=== PATIENT | male | born 1940 | race Caucasian/White ===

== ENCOUNTER 2016-06-13 16:56 | Inpatient (IN) | payer MEDICARE, OTHER ==
[~2016-06-13] VITALS: Ht 170.2 cm; Wt 80.3 kg
[~2016-06-13 16:56] MED LIST: AMLO1CAP8 PO; INSU100I13 SQ; INSU100I17 SQ; LEVO88TA4 PO; LOVA40TA2 PO; METF10002 PO
[2016-06-13] MEDS ORDERED: NITROGLYCERIN SUBLINGUAL 0.4 MG BOTTLE OF 25. SL PRN ×3 (17:15→19:15)
[2016-06-13 17:28] LABS: BASO # 0.1 x10^3/uL (0.0-0.2); BASO % 1 % (0-3); EOS % 4 % (0-3); HEMATOCRIT 47.7 % (39.0-53.0); HEMOGLOBIN 16.2 g/dL (13.0-17.5); LYMPH % 32 % (24-48); MEAN CORPUSCULAR HEMOGLOBIN 31 pg (25-35); MEAN CORPUSCULAR HGB CONC 34 g/dL (31-37); MEAN CORPUSCULAR VOLUME 92 fL (79-100); MONO % 7 % (0-9); NEUT % 56 % (31-73); PLATELET COUNT 306 x10^3/uL (140-400); RED BLOOD COUNT 5.17 x10^6/uL (4.30-5.70); RED CELL DISTRIBUTION WIDTH 12.9 % (11.5-14.5); WHITE BLOOD COUNT 9.5 x10^3/uL (4.0-11.0)
[2016-06-13 18:07] LABS: CALCIUM 9.3 mg/dL (8.5-10.1); CREATININE 1.3 mg/dL (0.7-1.3); GFR 53.8; POTASSIUM 3.9 mmol/L (3.5-5.1)
[2016-06-13 18:13] LABS: ALBUMIN 4.2 g/dL (3.4-5.0); DIRECT BILIRUBIN 0.1 mg/dL (0.0-0.2); MAGNESIUM 1.9 mg/dL (1.8-2.4); TOTAL BILIRUBIN 0.6 mg/dL (0.2-1.0); TOTAL PROTEIN 8.7 g/dL (6.4-8.2)
[2016-06-13 18:18] LABS: CKMB INDEX 1.3 % (0-4); CKMB MASS 1.6 ng/mL (0.0-3.6); INR 0.9 (0.8-1.1)
--- NOTE | 2016-06-13 18:41 | PHYS DOC ---
Past Medical History Past Medical History: Diabetes-Type II, High Cholesterol, Hypertension Past Surgical History: Other Additional Past Surgical Histo: hernia repair Alcohol Use: None Drug Use: None Adult General Chief Complaint Chief Complaint: CHEST PAIN HPI HPI Patient is a 76 year old female brought to the ED by ambulance with the complaint of pressure across the middle of his chest for about one hour. He never had chest pressure like this before. He did have an episode a few days ago of some pressure type pain in his left arm which went away by itself. He wasn't doing anything in particular. He did have some associated shortness of air today. When paramedics arrived they gave him a sublingual nitroglycerin and on arrival to the ED his pain is gone. He has also had a full dose of aspirin prehospital. PatienT has no cardiac history. PCP Dr. Tom Review of Systems Review of Systems Constitutional: Denies fever or chills [] Eyes: Denies change in visual acuity, redness, or eye pain [] HENT: Denies nasal congestion or sore throat [] Respiratory: Denies cough or shortness of breath [] Cardiovascular: As in history of present illness GI: Denies abdominal pain, nausea, vomiting, bloody stools or diarrhea [] : Denies dysuria or hematuria [] Musculoskeletal: Denies back pain or joint pain [] Integument: Denies rash or skin lesions [] Neurologic: Denies headache, focal weakness or sensory changes [] Current Medications Current Medications Current Medications Medications (Trade) Dose Ordered Sig/Darrius Start Time Stop Time Status Last Admin Dose Admin Nitroglycerin (Nitrostat) 0.4 mg PRN Q5MIN PRN 06/13/16 19:00 06/14/16 18:59 Allergies Allergies Allergies Coded Allergies Type Severity Reaction Last Updated Verified morphine Allergy Severe stops breathing 04/02/14 No Physical Exam Physical Exam Constitutional: Well developed, well nourished, no acute distress, non-toxic appearance. Alert, mentating normally. HENT: Normocephalic, atraumatic, bilateral external ears normal, nose normal. [ ] Eyes: conjunctiva normal, no discharge. [] Neck: Normal range of motion, no stridor. [] Cardiovascular:Heart rate regular rhythm, no murmur [] Lungs & Thorax: Bilateral breath sounds clear to auscultation [] Abdomen: Bowel sounds normal, soft, no tenderness, no masses, no pulsatile masses. [] Skin: Warm, dry, no erythema, no rash. [] Back: No tenderness, no CVA tenderness. [] Extremities: No tenderness, no cyanosis, no clubbing, ROM intact, no edema. [] Neurologic: Alert and oriented X 3, normal motor function, normal sensory function, no focal deficits noted. [] Current Patient Data Vital Signs Vital Signs Date Time Temp Pulse Resp B/P Pulse Ox O2 Delivery O2 Flow Rate FiO2 06/13/16 16:56 98.5 76 22 146/74 97 Room Air 98.5 Lab Values Laboratory Tests Test 06/13/16 17:10 White Blood Count 9.5x10^3/uL (4.0-11.0) Red Blood Count 5.17x10^6/uL (4.30-5.70) Hemoglobin 16.2g/dL (13.0-17.5) Hematocrit 47.7% (39.0-53.0) Mean Corpuscular Volume 92fL (79-100) Mean Corpuscular Hemoglobin 31pg (25-35) Mean Corpuscular Hemoglobin Concent 34g/dL (31-37) Red Cell Distribution Width 12.9% (11.5-14.5) Platelet Count 306x10^3/uL (140-400) Neutrophils (%) (Auto) 56% (31-73) Lymphocytes (%) (Auto) 32% (24-48) Monocytes (%) (Auto) 7% (0-9) Eosinophils (%) (Auto) 4% (0-3) H Basophils (%) (Auto) 1% (0-3) Neutrophils # (Auto) 5.3x10^3uL (1.8-7.7) Lymphocytes # (Auto) 3.0x10^3/uL (1.0-4.8) Monocytes # (Auto) 0.7x10^3/uL (0.0-1.1) Eosinophils # (Auto) 0.4x10^3/uL (0.0-0.7) Basophils # (Auto) 0.1x10^3/uL (0.0-0.2) Prothrombin Time 12.0SEC (11.7-14.0) Prothrombin Time INR 0.9 (0.8-1.1) Sodium Level 138mmol/L (136-145) Potassium Level 3.9mmol/L (3.5-5.1) Chloride Level 100mmol/L (98-107) Carbon Dioxide Level 24mmol/L (21-32) Anion Gap 14 (6-14) Blood Urea Nitrogen 9mg/dL (8-26) Creatinine 1.3mg/dL (0.7-1.3) Estimated GFR (Cockcroft-Gault) 53.8 Glucose Level 140mg/dL (70-99) H Calcium Level 9.3mg/dL (8.5-10.1) Magnesium Level 1.9mg/dL (1.8-2.4) Total Bilirubin 0.6mg/dL (0.2-1.0) Direct Bilirubin 0.1mg/dL (0.0-0.2) Aspartate Amino Transferase (AST) 29U/L (15-37) Alanine Aminotransferase (ALT) 31U/L (16-63) Alkaline Phosphatase 47U/L (46-116) Creatine Kinase 125U/L (39-308) Creatine Kinase MB (Mass) 1.6ng/mL (0.0-3.6) Creatine Kinase MB Relative Index 1.3% (0-4) Troponin I Quantitative < 0.017ng/mL (0.000-0.055) WH-Xdt-C-Type Natriuretic Peptide 93pg/mL (0-449) Total Protein 8.7g/dL (6.4-8.2) H Albumin 4.2g/dL (3.4-5.0) Laboratory Tests 06/13/16 17:10 Laboratory Tests 06/13/16 17:10 EKG EKG 12-lead EKG read by me. Sinus rhythm. Heart rate 100. There are 4 PVCs. There are no acute ST or T wave changes indicative of ischemia or infarction. No STEMI. 1659 [] Radiology/Procedures Radiology/Procedures One view portable chest x-ray read by me. Heart size is normal. Lung bucio are clear. No acute cardiopulmonary abnormality. [] Course & Med Decision Making Course & Med Decision Making Pertinent Labs and Imaging studies reviewed. (See chart for details) 76-year-old male presents by EMS with a one-hour history of a pressure-type discomfort in his chest that is new for him. No EKG changes. It was relieved by one sublingual nitroglycerin per EMS. He has had a dose of aspirin. I'm concerned that this may represent angina/cardiac chest pain. I discussed with the patient admission to the hospital for serial troponins and cardiology consultation for further evaluation, he is agreeable to that plan. I spoke with Dr. Tom about admitting the patient. I wrote bridge orders. [] Dragon Disclaimer Dragon Disclaimer This electronic medical record was generated, in whole or in part, using a voice recognition dictation system. Departure Departure Impression: Primary Impression: Chest pain Disposition: ADMITTED INPATIENT Admitting Physician: oJaquin Tom Condition: STABLE Referrals: JOAQUIN TOM MD (PCP) SAVANNAH DOMINGUEZ MD Jun 13, 2016 18:41
[2016-06-13] MEDS ORDERED: ACETAMINOPHEN 325 MG TABLET. PO PRN (19:15)
[2016-06-13] MEDS ORDERED: MAGNESIUM HYDROXIDE 2,400 MG/30 ML ORAL.SUSP. PO PRN (19:15)
[2016-06-13 20:22] VITALS: BP 143/84
[2016-06-13] MEDS: ATORVASTATIN CALCIUM 20 MG TABLET PO SCH (20:38)
[2016-06-13] MEDS: INSULIN DETEMIR 300 UNITS/3 ML INSULN.PEN. SQ SCH (20:42)
[2016-06-13 22:59] VITALS: BP 134/83
--- NOTE | 2016-06-14 05:35 | ACF ---
Admission Forms Criteria CHEST PAIN Clinical Indications for Admission to Inpatient Care (Place 'X' for any and all applicable criteria): Admission is indicated for chest pain and ANY ONE of the following(1)(2)(3)(4)(5 ): [ ]I. Angina with acute coronary syndrome (Also use Myocardial Infarction or Angina guideline) [ ]II. Hemodynamic instability [ ]III. Angina needing acute intervention as indicated by ALL of the following( 11)(12): [ ]a) Unstable angina is present as indicated by angina that is ANY ONE of the following: [ ]i) New onset [ ]ii) Nocturnal [ ]iii) Prolonged at rest [ ]iv) Progressive [ ]b) Angina warrants acute intervention as indicated by ANY ONE of the following: [ ]i) Recurrent angina (e.g, not responding as previously to treatment) [ ]ii) Angina at rest or with low-level activities despite initial medical therapy [ ]iii) New or presumably new ST-segment depression on ECG [ ]iv) Signs or symptoms of heart failure (eg, dyspnea, pulmonary edema) [ ]v) New or worsening mitral regurgitation [ ]vi) Hemodynamic instability [ ]vii) Dangerous arrhythmia (eg, sustained ventricular tachycardia) [ ]viii) History of percutaneous coronary intervention within 6 months [ ]ix) History of coronary artery bypass graft surgery [ ]x) AGUILAR risk score of 2 or greater[A] [ ]xi) History of Diabetes(14) [ ]xii) High-risk cardiac ischemia findings on noninvasive testing (e.g, echocardiogram, treadmill testing, nuclear scan) [ ]xiii) Chronic renal insufficiency (ie, estimated GFR less than 60 mL/min/1.732m) [ ]xiv) Left ventricular ejection fraction less than 40% [ ]IV. Evidence of MD (eg, cardiac biomarkers positive, ST-segment elevation on ECG) also use Myocardial Infarction Criteria Form. [ ]V. Pulmonary edema [ ]. Respiratory distress [ ]VII. Chest pain indicative of serious diagnosis other than coronary artery disease (eg, aortic dissection) [ ]VIII. Contraindications and/or Inappropriate clinical situations for Observational Care in patients with Chest Pain, when ANY ONE of the following is required: [ ]a) Patient with risk factor for pulmonary embolism, acute coronary syndrome and myocardial infarction (18) [ ]b) Patient with Pulmonary embolism require an average LOS of 4.3 days, therefore emergency department observation management is inappropriate 18,23 [ ]c) Painful condition/s in the elderly, have the highest rate of recidivism after emergency department observation management (10.8%) 20,21,22 [ ]d) Elevated cardiac biomarker requires intensive and exhaustive care (19) [X]IX. General contraindications and/or Inappropriate clinical situations for Observational Care in patients with Chest Pain, when ANY ONE of the following is required: [X]a) Prediction of prolongation of LOS based on ANY ONE of the following may be considered as a contraindication for observational care 2, 3, 4, 5, 6, 7, 8, 9, 10, 11 [X]i) Age > 65 yrs. [ ]ii) Patient arriving by ambulance [ ]iii) Patient with high acuity [X]iv) Patient requiring vital sign monitoring [ ]v) Patient on IV medication [ ]b) Systolic blood pressures 180mmHg 3,12 [ ]c) Patient with altered mental status including delirium and other alteration of consciousness, (3) [ ]d) Patient whose discharge disposition will be to a [facility]p home or rehabilitation home should not be managed in Emergency Department Observation Unit. CMS rule requires 3 days hospital stay before such placement. 3,13 [ ]e) Patient with failure to thrive due to broad array of etiologies 3,16,17 [ ]f) Inability to ambulate 3,14 Extended stay beyond goal length of stay may be needed for (1)(28): [ ]a) Specific condition diagnosed after evaluation (eg, pulmonary embolism, aortic dissection) [ ]b) Unstable angina [ ]c) Continued suspicion of acute coronary syndrome with inability to complete needed cardiac evaluation (eg, patient clinically unable to undergo stress testing) [ ]d) Myocardial infarction (Contents from ANGINA and CHEST PAIN clinical indications for admission to inpatient care have been integrated in this form) The original [facility] content created by [employer] has been revised. The portions of the content which have been revised are identified through the use of italic text or in bold, and [facility] has neither reviewed nor approved the modified material. All other unmodified content is copyright [facility]. Please see references footnoted in the original [facility] edition 2016 Admission Criteria Met?: Yes YUDY FRASER Jun 14, 2016 05:35
[2016-06-14] MEDS: LEVOTHYROXINE 88 MCG TABLET PO SCH (06:01)
[2016-06-14 06:47] LABS: CHOLESTEROL/HDL RATIO 4.3
[2016-06-14 07:10] VITALS: BP 129/76
[2016-06-14] MEDS: METFORMIN 1,000 MG TABLET PO SCH ×2 (08:26→17:37)
[2016-06-14] MEDS: AMLODIPINE BESYLATE 5 MG TABLET PO SCH (08:26)
[2016-06-14] MEDS: LISINOPRIL 20 MG TABLET PO SCH (08:27)
[2016-06-14] MEDS: INSULIN ASPART 300 UNITS/3 ML INSULN.PEN SQ SCH ×2 (08:31→12:17)
--- NOTE | 2016-06-14 09:57 | PDOC ---
Provider Note Provider Note history and physical dictated # [id number] LUZMA CARDOZO MD Jun 14, 2016 09:57
[2016-06-14 10:35] VITALS: BP 127/76
--- NOTE | 2016-06-14 10:58 | RAD ---
EXAM: Chest one view. HISTORY: Chest pain. COMPARISON: 04/02/2014. FINDINGS: A frontal view of the chest is obtained. Linear opacities in the left base are consistent with atelectasis or scarring. A triangular opacity in the right cardiophrenic angle is stable and likely represents a fat pad. Calcified mediastinal lymph nodes are likely secondary to old granulomatous disease. There is no pneumothorax or pleural effusion. The heart is not enlarged. There are atherosclerotic calcifications of the aorta. A paraspinal opacity at the hiatus suggests a hiatal hernia or aortic tortuosity. It is stable. IMPRESSION: 1. Left basilar atelectasis or scarring. 2. Moderate hiatal hernia versus aortic tortuosity.
[2016-06-14] MEDS: ASPIRIN 325 MG TABLET PO SCH (12:15)
--- NOTE | 2016-06-14 12:49 | EKG ---
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
[2016-06-14 14:30] VITALS: BP 125/77
--- NOTE | 2016-06-14 16:30 | PDOC2 ---
CARDIAC CONSULT DATE OF CONSULT Date of Consult DATE: 06/14/16 TIME: 16:21 REASON FOR CONSULT Reason for Consult: Chest pain HISTORY OF PRESENT ILLNESS HISTORY OF PRESENT ILLNESS 76 yo diabetic reports left arm pain last week that was unprovoked and subsided spontaneously after 15 to 20 minutes. Then had substernal pressure on day of admit that again was unprovoked and lasted 15-20 minutes and subsided. 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 This lasted about an hour before being relieved in the ED with some nitro. He has been symptom free since admit. Troponin negative x 2. PAST MEDICAL HISTORY Cardiovascular: HTN, Hyperlipidemia Endocrine: Diabetes PAST SURGICAL HISTORY Past Surgical History Hernia x 2 FAMILY HISTORY Family History Ftaher with CHF late in life SOCIAL HISTORY Smoke: No CURRENT MEDICATIONS CURRENT MEDICATIONS Current Medications Medications (Trade) Dose Ordered Sig/Darrius Route PRN Reason Start Time Stop Time Status Last Admin Dose Admin Amlodipine Besylate (Norvasc) 5 mg DAILY PO 06/14/16 09:00 06/14/16 08:26 Lisinopril (Prinivil) 20 mg DAILY PO 06/14/16 09:00 06/14/16 08:27 Insulin Aspart (Novolog) 6 units DAILYWBKFT SQ 06/14/16 08:00 06/14/16 08:31 Insulin Aspart (Novolog) 4 units DAILYWLUN SQ 06/14/16 12:00 06/14/16 12:17 Levothyroxine Sodium (Synthroid) 88 mcg DAILY07 PO 06/14/16 07:00 06/14/16 06:01 Insulin Detemir (Levemir) 22 units QHS SQ 06/13/16 21:00 06/13/16 20:42 Metformin HCl (Glucophage) 1,000 mg BIDWMEALS PO 06/14/16 08:00 06/14/16 08:26 Atorvastatin Calcium (Lipitor) 20 mg QHS PO 06/13/16 21:00 06/13/16 20:38 Aspirin (Enrico Aspirin) 325 mg DAILYWBKFT PO 06/14/16 11:00 06/14/16 12:15 ALLERGIES ALLERGIES: Coded Allergies: morphine (Verified Allergy, Severe, stops breathing, 06/14/16) PHYSICAL EXAM General: Alert, Oriented X3, Cooperative Lungs: Clear to auscultation Heart: No murmurs Abdomen: Normal bowel sounds Extremities: No edema Neuro: Other (non-focal) VITALS VITALS Vital Signs Date Time Temp Pulse Resp B/P Pulse Ox O2 Delivery O2 Flow Rate FiO2 06/14/16 14:30 97.9 76 18 125/77 97 Room Air 97.9 06/13/16 22:59 2.0 LABS Lab: Laboratory Tests Test 06/13/16 17:10 06/13/16 20:01 06/14/16 01:00 06/14/16 05:55 White Blood Count 9.5x10^3/uL (4.0-11.0) Red Blood Count 5.17x10^6/uL (4.30-5.70) Hemoglobin 16.2g/dL (13.0-17.5) Hematocrit 47.7% (39.0-53.0) Mean Corpuscular Volume 92fL (79-100) Mean Corpuscular Hemoglobin 31pg (25-35) Mean Corpuscular Hemoglobin Concent 34g/dL (31-37) Red Cell Distribution Width 12.9% (11.5-14.5) Platelet Count 306x10^3/uL (140-400) Neutrophils (%) (Auto) 56% (31-73) Lymphocytes (%) (Auto) 32% (24-48) Monocytes (%) (Auto) 7% (0-9) Eosinophils (%) (Auto) 4% (0-3) Basophils (%) (Auto) 1% (0-3) Neutrophils # (Auto) 5.3x10^3uL (1.8-7.7) Lymphocytes # (Auto) 3.0x10^3/uL (1.0-4.8) Monocytes # (Auto) 0.7x10^3/uL (0.0-1.1) Eosinophils # (Auto) 0.4x10^3/uL (0.0-0.7) Basophils # (Auto) 0.1x10^3/uL (0.0-0.2) Prothrombin Time 12.0SEC (11.7-14.0) Prothromb Time International Ratio 0.9 (0.8-1.1) Sodium Level 138mmol/L (136-145) Potassium Level 3.9mmol/L (3.5-5.1) Chloride Level 100mmol/L (98-107) Carbon Dioxide Level 24mmol/L (21-32) Anion Gap 14 (6-14) Blood Urea Nitrogen 9mg/dL (8-26) Creatinine 1.3mg/dL (0.7-1.3) Estimated GFR (Cockcroft-Gault) 53.8 Glucose Level 140mg/dL (70-99) Calcium Level 9.3mg/dL (8.5-10.1) Magnesium Level 1.9mg/dL (1.8-2.4) Total Bilirubin 0.6mg/dL (0.2-1.0) Direct Bilirubin 0.1mg/dL (0.0-0.2) Aspartate Amino Transf (AST/SGOT) 29U/L (15-37) Alanine Aminotransferase (ALT/SGPT) 31U/L (16-63) Alkaline Phosphatase 47U/L (46-116) Creatine Kinase 125U/L (39-308) Creatine Kinase MB (Mass) 1.6ng/mL (0.0-3.6) Creatine Kinase MB Relative Index 1.3% (0-4) Troponin I Quantitative < 0.017ng/mL (0.000-0.055) < 0.017ng/mL (0.000-0.055) < 0.017ng/mL (0.000-0.055) MG-Ndo-P-Type Natriuretic Peptide 93pg/mL (0-449) Total Protein 8.7g/dL (6.4-8.2) Albumin 4.2g/dL (3.4-5.0) Glucose (Fingerstick) 216mg/dL (70-99) Triglycerides Level 231mg/dL (0-150) Cholesterol Level 133mg/dL (0-200) LDL Cholesterol, Calculated 56mg/dL (0-100) VLDL Cholesterol, Calculated 46mg/dL (0-40) HDL Cholesterol 31mg/dL (40-60) Cholesterol/HDL Ratio 4.3 Test 06/14/16 07:15 06/14/16 11:25 Glucose (Fingerstick) 153mg/dL (70-99) 182mg/dL (70-99) EKG EKG No injury pattern or ischemia ASSESSMENT/PLAN ASSESSMENT/PLAN 1) Non-cardiac chest pain. Most likely GI, particularly given that he was bending at the waist when worst symptoms were provoked, c/w possible hiatal hernia or esophageal spasm. 2) Diabetes 3) HTN This event is without any high risk features, and therefore there is no need for ACS treatment with anticoagulation or DAPT. However, it is reasonable to perform risk stratification with stress testing given his risk profile with DM, HTN,and age. Plan for tomorrow. More care planning and recommendations to follow stress testing. Total time with more than half counseling and coordinating care on the unit is 35 minutes. Problems: KASEY REED DO Jun 14, 2016 16:30
[2016-06-14] MEDS ORDERED: INSULIN ASPART 300 UNITS/3 ML INSULN.PEN SQ SCH (17:00)
--- NOTE | 2016-06-14 17:58 | HP ---
ADMIT DATE: 06/13/2016 LOCATION: He is in room 504. HISTORY OF PRESENT ILLNESS: The patient is a 76-year-old white male with a history of diabetes mellitus type 2, hypertension, hyperlipidemia and hypothyroidism who was admitted to [facility] at the Emergency Room with chest pressure. The patient states that he was sitting down at the computer reviewing his emails when he developed the onset of chest pressure associated with dizziness and generalized weakness, but without any shortness of breath or diaphoresis. He took an aspirin 81 mg and paramedics arrived and he noted his chest pressure was improving. He was given a sublingual nitroglycerin and chest pressure was essentially resolved by the time he got to the Emergency Room. His electrocardiogram was told to not show any acute change. He also had a chest x-ray done. He has not had any recurrent chest pressure since admission. He did note 2 days prior to his episode yesterday, he had a 4-minute episode of left arm discomfort, but attributed that to lifting some heavy things prior to that. Denies any exertional chest discomfort. He does not have any family history of acute myocardial infarctions, nor does he smoke cigarettes. He said he was taken off of aspirin in 2013 because he had a lower GI bleed. ALLERGIES AND INTOLERANCES: MORPHINE. MEDICATIONS: Prior to admission include Levemir insulin 22 units at bedtime. He is on NovoLog insulin 6 units before breakfast and 4 units before lunch and supper. He takes amlodipine/benazepril 5/10 mg once a day and actual benazepril 10 mg every day. Also takes levothyroxine 88 mcg every day, metformin 1000 mg b.i.d., and lovastatin 40 mg every day. PAST MEDICAL HISTORY: Significant for diabetes mellitus type 2, hypertension, hyperlipidemia and hypothyroidism. He has a history of benign prostatic hypertrophy. He has right eye prosthesis, right inguinal hernia repair in 2007, umbilical hernia repair, and tonsillectomy. He had a colonoscopy with polypectomy with tubular adenomas removed in 04/2012. History of diverticulosis. Apparently, he had a lower GI bleed in 2012. SOCIAL HISTORY: He does not drink alcohol nor does she smoke cigarettes. He is retired and . He lives alone. FAMILY HISTORY: Mother with diabetes mellitus and cerebrovascular accident. His sister has diabetes mellitus. REVIEW OF SYSTEMS: GENERAL: There has been no fever, chills or sweats in the last few days. CARDIOVASCULAR: He had chest pressure. PULMONARY: No cough or shortness of breath. GASTROINTESTINAL: No constipation. SKIN: No rashes. NEUROLOGIC: No focal weakness. ENDOCRINE: He has diabetes mellitus. SKIN: No rashes. The rest of systems reviewed are negative except as stated in the history of present illness. PHYSICAL EXAMINATION: VITAL SIGNS: Temperature is 97.7 degrees, apical pulse is regular at 68, respiratory rate 18, blood pressure 129/76, and oxygen saturation 97% on room air. HEENT: Eyes: He has got a prosthetic right eye. Mouth is symmetrical. NECK: No cervical lymphadenopathy or thyroid enlargement. HEART: Reveals an S1, S2. There is no S3 or murmur. LUNGS: Clear. ABDOMEN: Soft with no hepatosplenomegaly, masses, or tenderness. EXTREMITIES: Lower extremities without edema. Examination of his feet, dorsalis pedis pulses are present bilaterally. SKIN: No rashes. NEUROLOGIC: Revealed no focal weakness of the extremities or facial asymmetry. LABORATORY DATA: White count 9.5, hemoglobin 16.2, platelet count 306,000, 56 polys and 32 lymphocytes. INR was 0.9. Serum sodium 138, potassium 3.9, chloride 100, total CO2 is 24, BUN 9, creatinine 1.3, estimated GFR 53.8. Liver function tests were normal. Albumin 4.2. Troponin was negative x 3. Fingerstick blood sugar 153 today, cholesterol 133, LDL cholesterol 56, HDL cholesterol 31, and triglycerides 231. The chest x-ray report is pending and I do not have access to read the electrocardiogram due to the computer issue we have at this facility. ASSESSMENT AND PLAN: 1. Chest pressure. He did not have an acute myocardial infarction, as his cardiac enzymes are negative x 3; however, he does have several risk factors for coronary artery disease including diabetes mellitus, hypertension and hyperlipidemia. We will order an echocardiogram and a stress test and consult with cardiology. 2. Diabetes mellitus type 2 with diabetic nephropathy. 3. Chronic kidney disease stage 3. 4. Hypertension. 5. Hyperlipidemia. 6. Hypothyroidism. 7. Diverticulosis. PLAN: Plan at this time is to resume his aspirin 325 mg every day. I will order an echocardiogram and have the safety analyst order the stress test for tomorrow. We will continue with his current insulin dose, continue with his amlodipine and substitute his benazepril with lisinopril and we will also substitute his lovastatin with atorvastatin. Continue with the aspirin for now. Continue with the metformin also and insulin for his diabetes mellitus and the levothyroxine for his hypothyroidism. Hemoglobin A1c was ordered. Nitroglycerin sublingual p.r.n. has been ordered. We will put him on ADA cardiac diet and consult Dr. Haynes for cardiology. LUZMA CARDOZO MD DR: REGINA/nts JOB#: [id number] / [id number]
[2016-06-14 19:42] VITALS: BP 90/58
[2016-06-14 19:45] VITALS: BP 134/77
[2016-06-14] MEDS: ATORVASTATIN CALCIUM 20 MG TABLET PO SCH (20:40)
[2016-06-14] MEDS: INSULIN DETEMIR 300 UNITS/3 ML INSULN.PEN. SQ SCH (20:44)
[2016-06-14 23:01] VITALS: BP 138/80
[2016-06-15 04:44] LABS: BASO # 0.1 x10^3/uL (0.0-0.2); BASO % 2 % (0-3); EOS % 6 % (0-3); HEMATOCRIT 42.3 % (39.0-53.0); HEMOGLOBIN 14.3 g/dL (13.0-17.5); LYMPH # 2.6 x10^3/uL (1.0-4.8); LYMPH % 30 % (24-48); MEAN CORPUSCULAR HEMOGLOBIN 31 pg (25-35); MEAN CORPUSCULAR HGB CONC 34 g/dL (31-37); MEAN CORPUSCULAR VOLUME 92 fL (79-100); MONO % 9 % (0-9); NEUT % 53 % (31-73); PLATELET COUNT 240 x10^3/uL (140-400); RED BLOOD COUNT 4.61 x10^6/uL (4.30-5.70); RED CELL DISTRIBUTION WIDTH 12.8 % (11.5-14.5); WHITE BLOOD COUNT 8.4 x10^3/uL (4.0-11.0)
[2016-06-15 05:01] LABS: CALCIUM 8.7 mg/dL (8.5-10.1); CREATININE 1.2 mg/dL (0.7-1.3); POTASSIUM 4.5 mmol/L (3.5-5.1)
[2016-06-15] MEDS: LEVOTHYROXINE 88 MCG TABLET PO SCH (06:28)
[2016-06-15 07:00] VITALS: BP 131/80
[2016-06-15] MEDS: INSULIN ASPART 300 UNITS/3 ML INSULN.PEN SQ SCH ×2 (08:00→12:23)
--- NOTE | 2016-06-15 08:37 | PDOC ---
PROGRESS NOTES Subjective Subjective denies further chest pain. will have stress test today Objective Objective Vital Signs Date Time Temp Pulse Resp B/P Pulse Ox O2 Delivery O2 Flow Rate FiO2 06/15/16 07:00 98.1 72 14 131/80 97 Room Air 98.1 06/13/16 22:59 2.0 Intake and Output 06/15/16 07:00 Intake Total 980 ml Balance 980 ml Intake Oral 980 ml # Voids 6 Physical Exam Abdomen: Soft Heart: Regular rate, Normal S1, Normal S2 Extremities: No edema General: Alert HEENT: Atraumatic Lungs: Clear to auscultation Neuro: Normal speech Psych/Mental Status: Mental status NL Skin: No rashes Assessment Assessment Problems Medical Problems:1. Chest pressure. troponin neg times 3 with cardiology. 2. Diabetes mellitus type 2 with diabetic nephropathy. 3. Chronic kidney disease stage 3. 4. Hypertension. 5. Hyperlipidemia. 6. Hypothyroidism. 7. Diverticulosis. (1) Chest pain Status: Acute Plan Plan of Care MPI stress test today Comment Review of Relevant I have reviewed the following items rachelle (where applicable) has been applied. Labs Laboratory Tests Test 06/13/16 17:10 06/13/16 20:01 06/14/16 01:00 06/14/16 05:55 White Blood Count 9.5x10^3/uL (4.0-11.0) Red Blood Count 5.17x10^6/uL (4.30-5.70) Hemoglobin 16.2g/dL (13.0-17.5) Hematocrit 47.7% (39.0-53.0) Mean Corpuscular Volume 92fL (79-100) Mean Corpuscular Hemoglobin 31pg (25-35) Mean Corpuscular Hemoglobin Concent 34g/dL (31-37) Red Cell Distribution Width 12.9% (11.5-14.5) Platelet Count 306x10^3/uL (140-400) Neutrophils (%) (Auto) 56% (31-73) Lymphocytes (%) (Auto) 32% (24-48) Monocytes (%) (Auto) 7% (0-9) Eosinophils (%) (Auto) 4% (0-3) Basophils (%) (Auto) 1% (0-3) Neutrophils # (Auto) 5.3x10^3uL (1.8-7.7) Lymphocytes # (Auto) 3.0x10^3/uL (1.0-4.8) Monocytes # (Auto) 0.7x10^3/uL (0.0-1.1) Eosinophils # (Auto) 0.4x10^3/uL (0.0-0.7) Basophils # (Auto) 0.1x10^3/uL (0.0-0.2) Prothrombin Time 12.0SEC (11.7-14.0) Prothromb Time International Ratio 0.9 (0.8-1.1) Sodium Level 138mmol/L (136-145) Potassium Level 3.9mmol/L (3.5-5.1) Chloride Level 100mmol/L (98-107) Carbon Dioxide Level 24mmol/L (21-32) Anion Gap 14 (6-14) Blood Urea Nitrogen 9mg/dL (8-26) Creatinine 1.3mg/dL (0.7-1.3) Estimated GFR (Cockcroft-Gault) 53.8 Glucose Level 140mg/dL (70-99) Calcium Level 9.3mg/dL (8.5-10.1) Magnesium Level 1.9mg/dL (1.8-2.4) Total Bilirubin 0.6mg/dL (0.2-1.0) Direct Bilirubin 0.1mg/dL (0.0-0.2) Aspartate Amino Transf (AST/SGOT) 29U/L (15-37) Alanine Aminotransferase (ALT/SGPT) 31U/L (16-63) Alkaline Phosphatase 47U/L (46-116) Creatine Kinase 125U/L (39-308) Creatine Kinase MB (Mass) 1.6ng/mL (0.0-3.6) Creatine Kinase MB Relative Index 1.3% (0-4) Troponin I Quantitative < 0.017ng/mL (0.000-0.055) < 0.017ng/mL (0.000-0.055) < 0.017ng/mL (0.000-0.055) BT-Wuj-K-Type Natriuretic Peptide 93pg/mL (0-449) Total Protein 8.7g/dL (6.4-8.2) Albumin 4.2g/dL (3.4-5.0) Glucose (Fingerstick) 216mg/dL (70-99) Triglycerides Level 231mg/dL (0-150) Cholesterol Level 133mg/dL (0-200) LDL Cholesterol, Calculated 56mg/dL (0-100) VLDL Cholesterol, Calculated 46mg/dL (0-40) HDL Cholesterol 31mg/dL (40-60) Cholesterol/HDL Ratio 4.3 Test 06/14/16 07:15 06/14/16 11:25 06/14/16 16:22 06/14/16 20:33 Glucose (Fingerstick) 153mg/dL (70-99) 182mg/dL (70-99) 138mg/dL (70-99) 172mg/dL (70-99) Test 06/15/16 04:00 06/15/16 08:17 White Blood Count 8.4x10^3/uL (4.0-11.0) Red Blood Count 4.61x10^6/uL (4.30-5.70) Hemoglobin 14.3g/dL (13.0-17.5) Hematocrit 42.3% (39.0-53.0) Mean Corpuscular Volume 92fL (79-100) Mean Corpuscular Hemoglobin 31pg (25-35) Mean Corpuscular Hemoglobin Concent 34g/dL (31-37) Red Cell Distribution Width 12.8% (11.5-14.5) Platelet Count 240x10^3/uL (140-400) Neutrophils (%) (Auto) 53% (31-73) Lymphocytes (%) (Auto) 30% (24-48) Monocytes (%) (Auto) 9% (0-9) Eosinophils (%) (Auto) 6% (0-3) Basophils (%) (Auto) 2% (0-3) Neutrophils # (Auto) 4.4x10^3uL (1.8-7.7) Lymphocytes # (Auto) 2.6x10^3/uL (1.0-4.8) Monocytes # (Auto) 0.8x10^3/uL (0.0-1.1) Eosinophils # (Auto) 0.5x10^3/uL (0.0-0.7) Basophils # (Auto) 0.1x10^3/uL (0.0-0.2) Sodium Level 142mmol/L (136-145) Potassium Level 4.5mmol/L (3.5-5.1) Chloride Level 107mmol/L (98-107) Carbon Dioxide Level 27mmol/L (21-32) Anion Gap 8 (6-14) Blood Urea Nitrogen 14mg/dL (8-26) Creatinine 1.2mg/dL (0.7-1.3) Estimated GFR (Cockcroft-Gault) 59.0 Glucose Level 120mg/dL (70-99) Calcium Level 8.7mg/dL (8.5-10.1) Glucose (Fingerstick) 152mg/dL (70-99) Laboratory Tests Test 06/14/16 11:25 06/14/16 16:22 06/14/16 20:33 06/15/16 04:00 Glucose (Fingerstick) 182mg/dL (70-99) 138mg/dL (70-99) 172mg/dL (70-99) White Blood Count 8.4x10^3/uL (4.0-11.0) Red Blood Count 4.61x10^6/uL (4.30-5.70) Hemoglobin 14.3g/dL (13.0-17.5) Hematocrit 42.3% (39.0-53.0) Mean Corpuscular Volume 92fL (79-100) Mean Corpuscular Hemoglobin 31pg (25-35) Mean Corpuscular Hemoglobin Concent 34g/dL (31-37) Red Cell Distribution Width 12.8% (11.5-14.5) Platelet Count 240x10^3/uL (140-400) Neutrophils (%) (Auto) 53% (31-73) Lymphocytes (%) (Auto) 30% (24-48) Monocytes (%) (Auto) 9% (0-9) Eosinophils (%) (Auto) 6% (0-3) Basophils (%) (Auto) 2% (0-3) Neutrophils # (Auto) 4.4x10^3uL (1.8-7.7) Lymphocytes # (Auto) 2.6x10^3/uL (1.0-4.8) Monocytes # (Auto) 0.8x10^3/uL (0.0-1.1) Eosinophils # (Auto) 0.5x10^3/uL (0.0-0.7) Basophils # (Auto) 0.1x10^3/uL (0.0-0.2) Sodium Level 142mmol/L (136-145) Potassium Level 4.5mmol/L (3.5-5.1) Chloride Level 107mmol/L (98-107) Carbon Dioxide Level 27mmol/L (21-32) Anion Gap 8 (6-14) Blood Urea Nitrogen 14mg/dL (8-26) Creatinine 1.2mg/dL (0.7-1.3) Estimated GFR (Cockcroft-Gault) 59.0 Glucose Level 120mg/dL (70-99) Calcium Level 8.7mg/dL (8.5-10.1) Test 06/15/16 08:17 Glucose (Fingerstick) 152mg/dL (70-99) Medications Current Medications Nitroglycerin (Nitrostat) 0.4 mg PRN Q5MIN PRN SL CP RATING > 1/10; Start 06/13 at 17:15; Stop 06/13/16 at 18:58; Status DC Nitroglycerin (Nitrostat) 0.4 mg PRN Q5MIN PRN SL CHEST PAIN; Start 06/13/16 at 19:00; Stop 06/13/16 at 19:22; Status DC Amlodipine Besylate (Norvasc) 5 mg DAILY PO Last administered on 06/14/16 08: 26; Start 06/14/16 at 09:00 Lisinopril (Prinivil) 20 mg DAILY PO Last administered on 06/14/16 08:27; Start 06/14/16 at 09:00 Insulin Aspart (Novolog) 6 units DAILYWBKFT SQ Last administered on 06/14/16 08:31; Start 06/14/16 at 08:00 Insulin Aspart (Novolog) 4 units DAILYWLUN SQ Last administered on 06/14/16 12 :17; Start 06/14/16 at 12:00 Insulin Aspart (Novolog) 4 units DAILYWSUP SQ Last administered on 06/14/16 17 :40; Start 06/14/16 at 17:00 Levothyroxine Sodium (Synthroid) 88 mcg DAILY07 PO Last administered on 06:28; Start 06/14/16 at 07:00 Insulin Detemir (Levemir) 22 units QHS SQ Last administered on 06/14/16 20:44 ; Start 06/13/16 at 21:00 Metformin HCl (Glucophage) 1,000 mg BIDWMEALS PO Last administered on 17:37; Start 06/14/16 at 08:00 Atorvastatin Calcium (Lipitor) 20 mg QHS PO Last administered on 06/14/16 20: 40; Start 06/13/16 at 21:00 Acetaminophen (Tylenol) 650 mg PRN Q4HRS PRN PO MILD PAIN / TEMP; Start at 19:15 Magnesium Hydroxide (Milk Of Magnesia) 2,400 mg DAILY PRN PO CONSTIPATION; Start 06/13/16 at 19:15 Nitroglycerin (Nitrostat) 0.4 mg PRN Q5MIN PRN SL CHEST PAIN; Start 06/13/16 at 19:15 Aspirin (Enrico Aspirin) 325 mg DAILYWBKFT PO Last administered on 06/14/16 12: 15; Start 06/14/16 at 11:00 Active Scripts Active Amlodipine-Benazepril 5-10 Mg (Amlodipine Besylate/Benazepril) 1 Each Capsule 1 Cap PO DAILY Novolog Flexpen (Insulin Aspart) 100 Unit/1 Ml Insuln.pen 4 Units SQ TIDAC Lantus Solostar (Insulin Glargine,Hum.rec.anlog) 100 Unit/1 Ml Insuln.pen 20 Unit SQ QHS Lovastatin 40 Mg Tablet 40 Mg PO HS Metformin Hcl 1,000 Mg Tablet 1 Tab PO BID Levothyroxine Sodium 88 Mcg Tablet 1 Tab PO DAILY Vitals/I & O Vital Sign - Last 24 Hours 06/14/16 06/14/16 06/14/16 06/14/16 10:35 14:30 19:45 23:01 Temp 97.5 97.9 97.8 97.7 97.5 97.9 97.8 97.7 Pulse 71 76 80 73 Resp 18 18 20 20 B/P 127/76 125/77 134/77 138/80 Pulse Ox 97 97 92 95 O2 Delivery Room Air Room Air Room Air Room Air 06/15/16 06/15/16 03:07 07:00 Temp 98.1 98.1 Pulse 68 72 Resp 14 B/P 131/80 Pulse Ox 97 O2 Delivery Room Air Intake and Output 06/14/16 06/14/16 06/15/16 15:00 23:00 07:00 Intake Total 480 ml 500 ml Balance 480 ml 500 ml LUZMA CARDOZO MD Jun 15, 2016 08:37
[2016-06-15] MEDS: ASPIRIN 325 MG TABLET PO SCH (12:17)
[2016-06-15] MEDS: METFORMIN 1,000 MG TABLET PO SCH (12:17)
[2016-06-15] MEDS: AMLODIPINE BESYLATE 5 MG TABLET PO SCH (12:18)
[2016-06-15] MEDS: LISINOPRIL 20 MG TABLET PO SCH (12:19)
--- NOTE | 2016-06-15 13:03 | CARD ---
APPROVED REPORT EXAM: Two-dimensional and M-mode echocardiogram with Doppler and color Doppler. Other Information Quality : Average Rhythm : NSR INDICATION Chest Pain 2D DIMENSIONS RVDd2.9 (2.9-3.5cm)Left Atrium(2D)3.3 (1.6-4.0cm) IVSd0.8 (0.7-1.1cm)Aortic Root(2D)3.0 (2.0-3.7cm) LVDd4.4 (3.9-5.9cm)LVOT Diameter2.2 (1.8-2.4cm) PWd0.7 (0.7-1.1cm)LVDs2.7 (2.5-4.0cm) FS (%) 30.6 %SV61.4 ml LVEF(%)60.1 (>50%) Aortic Valve AoV Peak Chirag.125.5cm/sAoV VTI21.2cm AO Peak GR.6.3mmHgLVOT Peak Chirag.73.8cm/s LVOT VTI 15.68cmAO Mean GR.4mmHg BHAVESH (VMAX)2.35vf8RIX (VTI)2.72cm2 AI P 1/2 Qtfg567pu Mitral Valve MV E Fjdaqvte29.1cm/sMV DECEL FDYG122qk MV A Hxswwggu10.5cm/sMV E Mean Gr.1mmHg MV YYS60utG/A Ratio0.7 MV A Jghzdsii054kqSBY (PHT)4.21cm2 TDI E/Lateral E'7.6E/Medial E'5.4 Pulmonary Valve PV Peak Hlsafprt00.0cm/sPV Peak Grad.3mmHg RVOT VTI11.5cm Tricuspid Valve TR P. Nvenzcjl562ze/sRAP LITFCCEJ5lvIj TR Peak Gr.35hmLdKYEH46zbGw Pulmonary Vein S1 Pqylqbvq43.7cm/sD2 Otrmaots32.6cm/s LEFT VENTRICLE The left ventricle is normal size. There is normal left ventricular wall thickness. Left ventricle sy stolic function is normal. The Ejection Fraction is 55-60%. There is normal LV segmental wall motion. Tissue Doppler imaging reveals mild left ventricular diastolic dysfunction. RIGHT VENTRICLE The right ventricle is normal size. The right ventricular systolic function is normal. ATRIA The left atrium size is normal. The right atrium size is normal. The interatrial septum is intact wit h no evidence for an atrial septal defect or patent foramen ovale as noted on 2-D or Doppler imaging. AORTIC VALVE The aortic valve is normal in structure and function. The aortic valve is trileaflet. Doppler and Col or Flow revealed no significant aortic regurgitation. There is no significant aortic valvular stenosi s. MITRAL VALVE The mitral valve is normal in structure and function. There is no mitral valve stenosis. Doppler and Color Flow revealed no mitral valve regurgitation noted. TRICUSPID VALVE The tricuspid valve is normal in structure and function. Doppler and Color Flow revealed mild tricusp id regurgitation. The PA pressure was estimated at 35 mmHg. There is no tricuspid valve stenosis. PULMONIC VALVE The pulmonic valve is not well visualized. Doppler and Color Flow revealed no pulmonic valvular regur gitation. There is no pulmonic valvular stenosis. GREAT VESSELS The aortic root is normal in size. Normal pulmonary venous flow (Doppler). The IVC was not visualized . PERICARDIAL EFFUSION There is no evidence of significant pericardial effusion. Critical Notification Critical Value: No <Conclusion> Left ventricle systolic function is normal. The Ejection Fraction is 55-60%. There is normal LV segmental wall motion. No significant valvular disease.
--- NOTE | 2016-06-15 13:42 | RAD ---
APPROVED REPORT Test Type: Exercise Stress Nurse/Tech: Gabbie Molina R.N. Test Indications: chest pain Cardiac History: Family history, Hypertension, Diabetes Medications: See Electronic Medical Record Medical History: See Electronic Medical Record Resting ECG: NSR Resting Heart Rate: 100 bpm Resting Blood Pressure: 150/80mmHg Pretest Chest Pain: No chest pain Nurse/Tech Notes S1S2, lungs sound clear Consent: The procedure was explained to the patient in lay terms. Informed consent was witnessed. Checo eout was entered into [employer]. History and Stress Test performed by Gabbie Molina R.N. Stress Symptoms Dyspnea POST EXERCISE Reason for Termination: Reached target heart rate Target HR: 123 Max HR: 155 bpm Exercise duration: 6 min min:sec, 2 Stage Max Blood Pressure: 176/80mmHg Blood Pressure response to exercise: Normal blood pressure response during stress. Chest Pain: No. Arrhythmia: Yes. occ PVC ST Change: No. INTERPRETATION Stress EKG Conclusion: Stress EKG has artifact but no gross abnormalities noted. The rest and stress images show normal perfusion, normal contraction and thickening. Other Information Quality:Average Risk Assessment: Low Risk Conclusion 1. Baseline EKG unremarkable, stress EKG with artifact but no gross abnormalities seen. Average work load at 7.0 Mets. 2. Perfusion imaging shows fixed basal lateral defect likely due to motion but no significant ischemi a noted. 3. Normal EF at > 70% 4. Low risk study
[2016-06-15 14:39] VITALS: BP 105/65
--- NOTE | 2016-06-15 14:41 | PDOC ---
LANCE VERNON IT SERVICE TECHNICIAN 06/15/16 1441: CARDIO Progress Notes Date and Time Date of Service 06/15/16 Time of Evaluation 1245 Subjective Subjective: No Chest Pain, No shortness of breath, No Palpitations Vitals Vitals Vital Signs Date Time Temp Pulse Resp B/P Pulse Ox O2 Delivery O2 Flow Rate FiO2 06/15/16 12:19 72 131/80 06/15/16 08:00 Room Air 06/15/16 07:00 98.1 14 97 98.1 Weight Weight [ ] Input and Output Intake and Output Intake and Output 06/15/16 07:00 Intake Total 980 ml Balance 980 ml Intake Oral 980 ml # Voids 6 Laboratory Labs Laboratory Tests Test 06/14/16 16:22 06/14/16 20:33 06/15/16 04:00 06/15/16 08:17 Glucose (Fingerstick) 138mg/dL (70-99) 172mg/dL (70-99) 152mg/dL (70-99) White Blood Count 8.4x10^3/uL (4.0-11.0) Red Blood Count 4.61x10^6/uL (4.30-5.70) Hemoglobin 14.3g/dL (13.0-17.5) Hematocrit 42.3% (39.0-53.0) Mean Corpuscular Volume 92fL (79-100) Mean Corpuscular Hemoglobin 31pg (25-35) Mean Corpuscular Hemoglobin Concent 34g/dL (31-37) Red Cell Distribution Width 12.8% (11.5-14.5) Platelet Count 240x10^3/uL (140-400) Neutrophils (%) (Auto) 53% (31-73) Lymphocytes (%) (Auto) 30% (24-48) Monocytes (%) (Auto) 9% (0-9) Eosinophils (%) (Auto) 6% (0-3) Basophils (%) (Auto) 2% (0-3) Neutrophils # (Auto) 4.4x10^3uL (1.8-7.7) Lymphocytes # (Auto) 2.6x10^3/uL (1.0-4.8) Monocytes # (Auto) 0.8x10^3/uL (0.0-1.1) Eosinophils # (Auto) 0.5x10^3/uL (0.0-0.7) Basophils # (Auto) 0.1x10^3/uL (0.0-0.2) Sodium Level 142mmol/L (136-145) Potassium Level 4.5mmol/L (3.5-5.1) Chloride Level 107mmol/L (98-107) Carbon Dioxide Level 27mmol/L (21-32) Anion Gap 8 (6-14) Blood Urea Nitrogen 14mg/dL (8-26) Creatinine 1.2mg/dL (0.7-1.3) Estimated GFR (Cockcroft-Gault) 59.0 Glucose Level 120mg/dL (70-99) Calcium Level 8.7mg/dL (8.5-10.1) Test 06/15/16 12:10 Glucose (Fingerstick) 162mg/dL (70-99) Physical Exam HEENT: Neck Supple W Full Motion Chest: Symmetric LUNGS: Clear to Auscultation Heart: S1S2, RRR Abdomen: Soft N/T Extremities: No Edema, No Calf Tenderness Neurology: alert, oriented, follow commands Assessment Assessment 1. Chest pain, atypical 2. Hypertension 3. Hyperlipidemia 4. Diabetes 5. GERD Recommendations Echo with normal LV function MPI testing underway today. If negative, may discharge from a CV standpoint. MULU GARCIA MD 06/15/16 5629: CARDIO Progress Notes Plan Plan Patient seen and examined. Agree with above nurse practitioner noted. No acute events overnight. No recurrent chest pain. Normal cardiac exam. MPI and echocardiogram within normal limits. Okay to discharge from a cardiac perspective. Thank you for this consultation. LANCE VERNON APRN Jun 15, 2016 14:41 MULU GARCIA MD Jun 15, 2016 18:25
--- NOTE | 2016-06-15 15:22 | PDOC ---
Provider Note Provider Note discharge summary dictated # [id number] LUZMA CARDOZO MD Jun 15, 2016 15:22
--- NOTE | 2016-06-15 15:23 | DISCH ---
DISCHARGE INSTRUCTIONS Condition on Discharge Condition on Discharge: Stable Activity After Discharge Activity Instructions for Disc: Resume previous activity Diet after Discharge Diet after Discharge: Diabetic No Calorie Level Contacting the DRVijay after DC Call your doctor for: If your condition worsens Follow-Up Follow up with: dr. cardozo next week LUZMA CARDOZO MD Jun 15, 2016 15:23
--- NOTE | 2016-06-15 22:59 | DS ---
DATE OF DISCHARGE: 06/15/2016 CONSULTANTS: Dr. Haynes. FINAL DIAGNOSES: 1. Chest pressure of undetermined etiology, possibly secondary to esophageal spasm. 2. Diabetes mellitus type 2 with diabetic nephropathy. 3. Chronic kidney disease stage 3. 4. Hypertension. 5. Hyperlipidemia. 6. Hypothyroidism. 7. Diverticulosis. HOSPITAL COURSE: The patient is a 76-year-old white male with history of diabetes mellitus type 2, hypertension, hyperlipidemia and hypothyroidism, admitted to through Emergency Room with chest pressure. States he was sitting down at the computer, reviewing emails when he developed the onset of chest pressure associated with dizziness and generalized weakness, but no shortness of breath or diaphoresis. He took an aspirin 81 mg ____ and the paramedics arrived and gave him sublingual nitroglycerin, on the way his chest pressure eventually resolved, but was resolving before the nitroglycerin. An EKG showed no acute changes. Chest x-ray showed no acute abnormality. He was subsequently admitted to the hospital. Troponin level was negative x 3. Echocardiogram showed a preserved left ventricular ejection fraction and his myocardial perfusion imaging stress test was negative for reversible ischemia. Seen in consultation by Dr. Haynes from Cardiology. Initially he was started on aspirin, but this will be discontinued as he has a history of diverticular bleed several years ago. He will be dismissed to home on Levemir insulin 22 units at bedtime, NovoLog 6 units before breakfast and 4 units before lunch and supper, amlodipine/benazepril 5/10 mg once a day and also another benazepril 10 mg every day, levothyroxine 88 mcg every day, metformin 1000 mg b.i.d., and lovastatin 40 mg every day. He was told to make an appointment to see Dr. Tom in the office next week. He will discontinue the aspirin that was started in the hospital. LUZMA TOM MD DR: REGINA/socrates JOB#: [id number] / [id number]
== END 2016-06-15 16:15 | disposition home or self-care (01) | DRG 392 ==
LOC: ER 16:56 → 5 NORTH 19:06
PROVIDERS: ADMIT Internal Medicine; ATTEND Internal Medicine
DX: K22.4 Dyskinesia of esophagus (principal); E78.00 Pure hypercholesterolemia, unspecified; E11.21 Type 2 diabetes mellitus with diabetic nephropathy; E03.9 Hypothyroidism, unspecified; E78.5 Hyperlipidemia, unspecified; K21.9 Gastro-esophageal reflux disease without esophagitis; N18.3 Chronic kidney disease, stage 3 (moderate); K57.90 Diverticulosis of intestine, part unspecified, without perforation or abscess without bleeding; I12.9 Hypertensive chronic kidney disease with stage 1 through stage 4 chronic kidney disease, or unspecified chronic kidney disease; N40.0 Benign prostatic hyperplasia without lower urinary tract symptoms; R07.89 Other chest pain; E11.22 Type 2 diabetes mellitus with diabetic chronic kidney disease; Z79.82 Long term (current) use of aspirin; Z82.3 Family history of stroke; Z79.4 Long term (current) use of insulin; Z79.84 Long term (current) use of oral hypoglycemic drugs; Z82.49 Family history of ischemic heart disease and other diseases of the circulatory system; Z83.3 Family history of diabetes mellitus; Z97.0 Presence of artificial eye; Z88.5 Allergy status to narcotic agent
CPT/HCPCS: 36415; 71010; 78452; 80048; 80061; 80076; 82553; 82947; 83036; 83735; 83880; 84484; 85027; 85610; 93005; 93017; 93306; 96374; 96376; A9500; J1815

== ENCOUNTER → 2019-02-07 | Outpatient (CLI) | payer MEDICARE, OTHER ==
[~2019-02-07] MED LIST changes: -AMLO1CAP8 PO; +AMLO1CAP9 PO; -METF10002 PO; +METF10007 PO
--- NOTE | 2019-02-07 16:53 | RAD ---
EXAM: Left knee, 3 views. HISTORY: Pain. COMPARISON: None. FINDINGS: 3 views left knee are obtained. There is no fracture, dislocation or subluxation. There is minimal joint fluid. There are vascular calcifications. IMPRESSION: No acute osseous finding. Electronically signed by: Aracelis Parr MD (02/07/2019 4:50 PM) [facility]
== END | disposition home or self-care (01) ==
LOC: RAD 16:00
PROVIDERS: ATTEND Internal Medicine
DX: M25.862 Other specified joint disorders, left knee (principal)
CPT/HCPCS: 73562